=== PATIENT | female | born 1995 | race Asian ===

== ENCOUNTER 2019-01-05 22:59 | Emergency (ER) | payer SELFPAY ==
[~2019-01-05] VITALS: Wt 46.2 kg
[2019-01-06] MEDS ORDERED: D-ME473S2 PO (01:49)
[2019-01-06] MEDS ORDERED: BENZ200C68 PO (01:49)
[2019-01-06 01:55] VITALS: BP 111/60; PULSE 105; RESP 20
--- NOTE | 2019-01-06 05:56 | ERD ---
ER Documentation Chief Complaint Chief Complaint COUGH X'S 2 WEEKS HPI 23-year-old female with no significant past medical history presenting to the emergency department with complaints of intermittent cough for the past 3 weeks. She states it is worse during the night. It is dry in nature. She took benzonatate with no relief. She denies any fevers, hemoptysis, recent travel, night sweats, or other symptoms at this time. ROS All systems reviewed and are negative except as per history of present illness. Medications Home Meds Active Scripts Benzonatate* (Benzonatate*) 200 Mg Capsule, 200 MG PO TID PRN for COUGH, #15 CAP Prov:JESSICA GAO PA-C 01/06/19 Dextromethorphan Hb-Promethazine Hcl* (Promethazine DM* Syrup) 473 Ml Syrup, 5 ML PO Q6 PRN for COUGH, #120 ML Prov:JESSICA GAO PA-C 01/06/19 Allergies Allergies: Coded Allergies: guaifenesin (Verified Allergy, Unknown, 01/05/19) PMhx/Soc Medical and Surgical Hx: pt denies Medical Hx History of Surgery: No Anesthesia Reaction: No Hx Neurological Disorder: No Hx Respiratory Disorders: No Hx Cardiac Disorders: No Hx Psychiatric Problems: No Hx Miscellaneous Medical Probl: No Hx Alcohol Use: No Hx Substance Use: No Hx Tobacco Use: No Smoking Status: Never smoker FmHx Family History: No diabetes Physical Exam Vitals Vital Signs Date Temp Pulse Resp B/P (MAP) Pulse Ox O2 O2 Flow FiO2 Time Delivery Rate 01/06/19 98.2 105 20 111/60 99 Room Air 01:55 (77) 01/05/19 99.8 125 20 140/79 98 23:07 (99) Physical Exam Const: No acute distress Head: Atraumatic Eyes: Normal Conjunctiva ENT: Normal External Ears, Nose and Mouth. Neck: Full range of motion. No meningismus. Resp: Clear to auscultation bilaterally Cardio: Regular rate and rhythm, no murmurs Skin: No petechiae or rashes Ext: No cyanosis, or edema Neur: Awake and alert Psych: Normal Mood and Affect Procedures/MDM 23-year-old female presenting to the emergency department complaints of cough intermittently for the past 3 weeks. Chest x-ray was negative for signs of infiltrate or other abnormalities per radiology. Symptoms are likely secondary to viral URI. Patient is stable and appropriate for discharge and further outpatient management. She was in agreement with the diagnosis, plan, need for follow-up, return precautions. Departure Diagnosis: Primary Impression: Cough Condition: Fair Patient Instructions: Cough, Chronic, Uncertain Cause, (Adult) Referrals: [facility] YOU HAVE RECEIVED A MEDICAL SCREENING EXAM AND THE RESULTS INDICATE THAT YOU DO NOT HAVE A CONDITION THAT REQUIRES URGENT TREATMENT IN THE EMERGENCY DEPARTMENT. FURTHER EVALUATION AND TREATMENT OF YOUR CONDITION CAN WAIT UNTIL YOU ARE SEEN IN YOUR DOCTORS OFFICE WITHIN THE NEXT 1-2 DAYS. IT IS YOUR RESPONSIBILITY TO MAKE AN APPOINTMENT FOR FOLOW-UP CARE. IF YOU HAVE A PRIMARY DOCTOR --you should call your primary doctor and schedule an appointment IF YOU DO NOT HAVE A PRIMARY DOCTOR YOU CAN CALL OUR PHYSICIAN REFERRAL HOTLINE AT IF YOU CAN NOT AFFORD TO SEE A PHYSICIAN YOU CAN CHOSE FROM THE FOLLOWING [facility] [address] [facility]. [facility] [address] [facility] [facility] [address] [facility] [facility] [address] [facility] [facility] [address] [facility]. [facility]. [address] Additional Instructions: Call your primary care doctor TOMORROW for an appointment during the next 1-2 days.See the doctor sooner or return here if your condition worsens before your appointment time. JESSICA GAO PA-C January 06, 2019 05:56
== END 2019-01-06 01:55 | disposition home or self-care (01) ==
LOC: FTE 22:59
DX: R05 Cough (principal)
CPT/HCPCS: 71045